=== PATIENT | male | born 2000 | race Caucasian/White ===

== ENCOUNTER 2022-06-12 13:41 | Emergency (ER) | payer OTHER ==
[~2022-06-12] VITALS: Ht 182.9 cm; Wt 88.5 kg
[2022-06-12 13:49] VITALS: BP 167/112
== END 2022-06-12 15:19 | disposition home or self-care (01) ==
LOC: ER 13:41
DX: S05.12XA Contusion of eyeball and orbital tissues, left eye, initial encounter (principal); W21.03XA Struck by baseball, initial encounter
CPT/HCPCS: 70486; 99283-25; A9270